=== PATIENT | male | born 1995 | race Caucasian/White ===

== ENCOUNTER → 2017-01-08 | Outpatient (CLI) | payer OTHER ==
--- NOTE | 2017-01-08 15:24 | RADIOLOGY REPORT (SQ) ---
EXAM DESCRIPTION: DUPLEX ART/IGLESIA FLOW COMPLETE COMPLETED DATE/TIME: 01/08/2017 9:45 am REASON FOR STUDY: HTN (I10) I10 ESSENTIAL (PRIMARY) HYPERTENSION COMPARISON: None. TECHNIQUE: Realtime and static grayscale images acquired. Selected color Doppler, velocities and spe ctral images recorded. LIMITATIONS: None. FINDINGS: RIGHT KIDNEY: RENAL ARTERY VELOCITIES: 82 cm/sec. Segmental artery velocity 78 cm/sec. RENAL VEIN: Color doppler flow present, patent. VELOCITY RATIO: 0.57. Normal waveforms. KIDNEY: Normal size. No significant pathology. LEFT KIDNEY: RENAL ARTERY VELOCITIES: 88 cm/sec. Segmental artery velocity 78 cm/sec. RENAL VEIN: Color doppler flow present, patent. VELOCITY RATIO: 0.61. Normal waveforms. KIDNEY: Normal size. No significant pathology. BLADDER: Normal. OTHER: No other significant finding. IMPRESSION: NO DOPPLER EVIDENCE OF HEMODYNAMICALLY SIGNIFICANT RENAL ARTERY STENOSIS. COMMENT: NORMAL RENAL ARTERY/AORTA VELOCITY RATIO IS LESS THAN OR EQUAL TO 3.5. TECHNICAL DOCUMENTATION: JOB ID: [id number] [employer]- All Rights Reserved
== END ==
LOC: RAD 08:32
PROVIDERS: ATTEND Internal Medicine Cardiovascular Disease
DX: I10 Essential (primary) hypertension (principal)
CPT/HCPCS: 93975